=== PATIENT | female | born 1975 | race Caucasian/White ===

== ENCOUNTER 2024-09-06 06:20 | Day surgery (SDC) | payer BC ==
[~2024-09-06 06:20] MED LIST: FAMOTIDINE 20 MG/2 ML VIAL IV PRN
[2024-09-06] MEDS: IV FLUID CONTINUATION 1,000 ML IV ONE (06:39)
[2024-09-06] MEDS: OXYMETAZOLINE 0.05% NASL SPRAY 1 SPRAY BOTTLE EA NOSTRIL PRN (06:59)
[2024-09-06] MEDS ORDERED: HYDROmorphone 0.5 MG/0.5 ML SYRINGE IVP PRN (07:00)
[2024-09-06 07:01] VITALS: TEMP 97
[2024-09-06] MEDS: DEXAMETHASONE SOD PHOSPHATE 4 MG/ML 1 ML VIAL IVP STA (07:02)
[2024-09-06] MEDS: MIDAZOLAM 2 MG/2 ML VIAL IV ONE (07:02)
[2024-09-06] MEDS: ONDANSETRON 4 MG/2 ML VIAL IVP STA (07:03)
[2024-09-06 07:14] LABS: Glucose,Whole Blood 90 mg/dL (70-110)
[2024-09-06] MEDS: LACTATED RINGERS 1,000 ML IV SCH (07:14)
[2024-09-06] MEDS ORDERED: MIDAZOLAM 2 MG/2 ML VIAL ONE (07:21)
[2024-09-06] MEDS ORDERED: SUCCINYLCHOLINE CHLORIDE 200 MG/10 ML VIAL IV ONE (07:21)
[2024-09-06] MEDS ORDERED: LIDOCAINE 1% INJ 10MG/ML (20 ML MDV) ONE (07:21)
[2024-09-06] MEDS ORDERED: ePHEDrine 50 MG/ML 1 ML VIAL ONE (07:21)
[2024-09-06] MEDS ORDERED: fentaNYL (PF) 50 MCG/ML 2 ML AMP ONE (07:21)
[2024-09-06] MEDS ORDERED: PROPOFOL 10 MG/ML 20 ML VIAL IV ONE (07:21)
[2024-09-06] MEDS ORDERED: PHENYLEPHRINE-0.9% NACL SYG 1,000 MCG/10 ML SYRINGE ONE (07:21)
[2024-09-06] MEDS: LIDOCAINE 1%-EPI 1:100,000 20 ML VIAL SUBMUCOSAL ONE ×2 (07:37)
[2024-09-06] MEDS: BACITRACIN ZINC 500 UNIT/GM OINT 28.4 GM TUBE TOPICAL ONE ×2 (07:44→08:42)
--- NOTE | 2024-09-06 08:53 | P.OP ---
Date of Procedure: 09/06/24 Preoperative Diagnosis: deviated nasal septum Inferior turbinate hypertrophy Chronic sinusitis Postoperative Diagnosis: same Procedure(s) Performed: septoplasty Outfractured and submucous resection inferior turbinates Bilateral endoscopic sinus surgery including bile max antrostomy with removal of tissue and exercises bilateral anterior and posterior ethmoidectomy with bilateral frontal sinusotomy and exploration and left sphenoidotomy with removal of tissue from the left sphenoid sinus Anesthesia: YARY Surgeon: Dylan Mccann Estimated Blood Loss (ml): 10 Pathology: other (nasal septum and sinus contents) Condition: stable Disposition: PACU Indications for Procedure: this is a 49-year-old white female who has had issues with chronic and recurrent sinusitis, chronic nasal airway obstruction as well as ALLERGIES with CT evidence of chronic sinusitis Operative Findings: nasal septum deviated to the right, inferior turbinate hypertrophy, diffuse chronic mucosal congestion in the maxillary ethmoid frontal and left sphenoid sinuses with small polyps in the maxillary bilateral frontal and left sphenoid sinuses, bilateral moderate polyps medial and lateral to the middle turbinates bilaterally maxillary ostia were obstructed bilaterally Description of Procedure: The patient was brought into the operative suite and placed in a supine position. The patient underwent induction of general anesthesia with oral endotracheal intubation without difficulty. The patient was prepped and draped in the usual aseptic fashion with the orbits in the operating field for monitoring to the case and the computed tomography scan was on the computer screen for review throughout the case. 1% lidocaine with 1 :100,000 epinephrine was infused submucosally into both sides of the nasal septum as well as the lateral nasal wall and anterior tips of the middle turbinates. While this was taking vasoconstrictive effect the inferior turbinates were infractured with Barbour elevator and partial submucous resection of the inferior turbinates was performed with a portion of the submucosal soft tissue and the inferior turbinate bone removed with Coblation device. The inferior turbinates were then outfractured with the Barbour elevator. A left hemitransfixion incision was then made with the mucoperichondrial and mucoperiosteal flap on the left elevated. The bony cartilaginous junction was disarticulated and the mucoperiosteal flap on the right was elevated. Bony nasal septal deformities were removed with Sharan forceps and an inferior cartilaginous strip was removed leaving a full 1.5 cm caudal strut. Checking intranasally this corrected the nasoseptal deformities and the hemitransfixion incision was closed with a running 4-0 chromic suture. Full 0 endoscopic examination is performed bilaterally. gross polyps lateral and medial to the middle turbinates were removed with the microdebrider. Beginning on the left, the middle turbinate was medialized. The maxillary ostium was located with a ballpoint probe and an infundibulotomy was performed followed by uncinectomy. The maxillary antrostomy was enlarged at the expense of the anterior and posterior fontanelle taking care anteriorly not to injure the lacrimal bone. The maxillary sinus was evaluated with 30 and 70 endoscope .[Abnormal appearing tissue was removed from the maxillary sinus- small polyps. Anterior and posterior ethmoidectomy were then performed from anterior to posterior to the level of the skull base. The roof of the anterior ethmoid air cells were then cleaned from posterior to anterior using up-biting Blakesley forceps were small polyps throughout the anterior posterior ethmoid air cells which were removed. frontal sinusotomy was opened with 30 endoscope and giraffe forceps. The frontal sinus was then explored with 30 endoscope.[Abnormal tissue was removed from the frontal sinus]. the left sphenoid ostium was obstructed and was opened under 0 endoscope and straight suction and straight Blakesley forceps The sphenoid sinus was then explored with 0 endoscope.[Abnormal tissue was removed from the sphenoid sinus]. Attention was then turned to the right where the procedures were followed as they had been on the left including infundibulotomy uncinectomy maxillary antrostomy with tissue from maxillary sinus anterior and posterior ethmoidectomy gross polypectomy in the middle meatus and frontal sinusotomy with exploration and removal of tissue. [Nasopore nasal dressing was placed in the middle meatus bilaterally under direct visualization]. Bilateral Fox airway splints coated with bacitracin ointment were placed and sutured transseptally with a 4-0 nylon suture. The patient was suctioned in oral gastric fashion and was allowed to emerge from general anesthesia having tolerated procedure well and was extubated in the operating suite and transferred to the postoperative recovery area in satisfactory condition.
[2024-09-06] MEDS: HYDROcodone/APAP 5-325MG 1 EACH TAB PO STA (11:45)
[2024-09-06 12:06] VITALS: RESP 16
[2024-09-06 12:19] VITALS: BP 132/73; PULSE 73
== END 2024-09-06 12:32 | disposition home or self-care (01) ==
LOC: OR 06:20
PROVIDERS: ATTEND Otolaryngology
CPT/HCPCS: 88300; 88305